=== PATIENT | female | born 1945 | race Caucasian/White ===

== ENCOUNTER 2024-02-02 08:45 | Outpatient (CLI) | payer MEDICARE, OTHER ==
--- NOTE | 2024-02-02 16:47 | XRAY Report ---
PROCEDURE: Wrist 3+V RT INDICATIONS: TENDINITIS OF RIGHT WRIST REGION TECHNIQUE: 3 views of the wrist were acquired. COMPARISON: None. FINDINGS: Bones: No fractures or dislocations. No suspicious bony lesions. Radiocarpal and first CMC arthrit ic changes are present. Calcification of the TCC is present. Soft tissues: No suspicious soft tissue calcifications or masses. IMPRESSION: No visualized acute fracture or dislocation. However, occult injury cannot be excluded. Recommend sarah rt interval imaging follow-up in 7-10 days as clinically indicated for additional evaluation. Reviewed by: Agustina Galindo MD on 02/02/2024 4:45 PM [facility] Approved by: Agustina Galindo MD on 02/02/2024 4:45 PM PST Station ID: [id number]
== END 2024-02-02 09:00 | disposition home or self-care (01) ==
LOC: DI.N 08:45
PROVIDERS: ATTEND Physician Assistant
DX: M67.833 Other specified disorders of tendon, right wrist (principal)